=== PATIENT | female | born 1990 | race African-American/Black ===

== ENCOUNTER 2020-10-07 22:40 | Emergency (ER) | payer OTHER ==
[~2020-10-07] VITALS: Ht 167.6 cm; Wt 52.2 kg
[~2020-10-07 22:40] MED LIST: AMOXICILLIN500 M3 PO; CIPRO500 MG PO; LOMOTIL 0.025 M1 TA1 PO; LOMOTIL 0.025 M1 TAB PO; MACROBID100 M1 PO; Miralax Powder255 GM PO; NKHM; PHENERGAN W/DM120 ML PO; PREDNICOT10 MG PO; PROAIR HFA0.09 MG/AC INH; Phenergan25 MG PO; TORADOL10 MG PO; VICODIN 5/500 505 MG PO; ZITHROMAX Z PA250 MG PO; ZOFRAN ODT4 MG SL; ZOFRAN4 MG PO; ZYRTEC10 MG PO; Zofran4 MG PO
[2020-10-07 23:36] LABS: BASO # 0.1 10*3/uL (0.0-0.1); BASO % 0.6 % (0.0-1.0); EOS # 0.1 10*3/uL (0.0-0.4); EOS % 0.7 % (1.0-4.0); HEMATOCRIT 38.6 % (37.0-47.0); LYMPH # 1.4 10*3/uL (1.3-4.4); LYMPH % 17.4 % (27.0-41.0); MEAN CORPUSCULAR HGB 30.3 pg (27.0-31.0); MEAN CORPUSCULAR HGB CONC 33.7 g/dl (33.0-37.0); MEAN PLATELET VOLUME 9.7 fl (9.6-12.3); MONO # 0.8 10*3/uL (0.1-1.0); MONO % 9.4 % (3.0-9.0); NEUT # 5.9 10*3/uL (2.3-7.9); NEUT % 71.8 % (47.0-73.0); PLATELET COUNT AUTOMATED 257 10*3/uL (130-400); RED BLOOD COUNT 4.29 10*6/uL (4.10-5.10); RED CELL DISTRI WIDTH 13.3 % (0-14.5); WHITE BLOOD COUNT 8.3 10*3/uL (4.8-10.8)
[2020-10-07 23:52] LABS: ACETAMINOPHEN (TYLENOL) < 5.0 ug/ml (10-30); ALKALINE PHOSPHATASE 55 U/L (45-117); BUN 12 mg/dl (7-24); CHLORIDE 114 mmol/L (98-107); CREATININE 0.65 mg/dL (0.55-1.02); ETHYL ALCOHOL < 3.0 mg/dl (<3); POTASSIUM 3.4 mmol/L (3.5-5.1); SGOT/AST 16 IU/L (3-35); SGPT/ALT 12 U/L (12-78); SODIUM 145 mmol/L (136-145)
[2020-10-08 00:02] LABS: THYROID STIM HORMONE (HS) < 0.005 uIU/ml (0.358-4.75)
[2020-10-08 09:02] LABS: BILIRUBIN Negative (Negative); BLOOD Negative (Negative); CLARITY Clear (Clear); COLOR Dark Yellow (Yellow); GLUCOSE Negative (Negative); KETONE Negative (Negative); LEUKO ESTERASE Negative (Negative); NITRITE Negative (Negative); SPECIFIC GRAVITY >= 1.030 (1.001-1.030)
[2020-10-08 09:10] LABS: URINE AMPHETAMINES < 1000 (1000ng/ml); URINE BARBITURATES < 200 (200ng/ml); URINE BENZODIAZEPINES < 200 (200ng/ml); URINE CANNABINOIDS (THC) > 50 (50ng/ml); URINE COCAINE < 300 (300ng/ml); URINE METHADONE < 300 (300ng/ml); URINE OPIATES < 300 (300ng/ml)
[2020-10-08 09:35] LABS: URINE PHENCYCLIDINE < 25 (25ng/ml)
[2020-10-08 09:44] LABS: BACTERIA 1+; CALCIUM OXALATE CRYSTALS Trace; MUCOUS 3+
[2020-10-08 19:30] VITALS: BP 110/80
== END 2020-10-08 19:35 | disposition short-term general hospital (02) ==
LOC: ED 22:40
PROVIDERS: Emergency Medicine
DX: F29 Unspecified psychosis not due to a substance or known physiological condition (principal); Z91.018 Allergy to other foods; Z88.5 Allergy status to narcotic agent; Z79.2 Long term (current) use of antibiotics; Z79.899 Other long term (current) drug therapy; Z20.828 Contact with and (suspected) exposure to other viral communicable diseases